=== PATIENT | male | born 1955 | race Caucasian/White ===

== ENCOUNTER 2017-11-16 20:22 | Emergency (ER) | payer OTHER ==
[~2017-11-16] VITALS: Ht 188 cm; Wt 114.8 kg
[~2017-11-16 20:22] MED LIST: CRESTOR10 MG PO; METFORMIN HCL1000 MG PO
[2017-11-16 21:34] LABS: HEMATOCRIT 46.5 % (38.0-50.0); HEMOGLOBIN 16.9 G/DL (12.5-16.6); MCH 31.7 PG (29.0-34.0); MCHC 36.3 G/DL (30.0-36.0); MCV 87.2 FL (86-99); PLATELET COUNT 222 K/uL (156-360); RBC DIS.WIDTH-CV 12.4 % (11.8-14.6); RBC DIS.WIDTH-SD 39.5 % (39-53); RED BLOOD COUNT 5.33 M/uL (4.00-5.50); WHITE BLOOD COUNT 12.2 K/uL (4.1-10.2)
[2017-11-16 21:43] LABS: ALBUMIN 4.6 g/dL (3.2-4.8); CHLORIDE 105 mEq/L (99-109); POTASSIUM 3.7 mEq/L (3.7-5.4); SODIUM 139 mEq/L (136-147)
[2017-11-16 21:45] LABS: GLUCOSE 176 mg/dL (70-99)
[2017-11-16 21:47] LABS: TOTAL BILIRUBIN 0.9 mg/dL (0.0-1.0)
[2017-11-16 21:49] LABS: ALKALINE PHOSPHATASE 109 IU/L (3-129); CREATININE 1.1 mg/dL (0.6-1.3); GFR ESTIMATE (CALCULATED) > 59 mL/min/ (58.99-99999)
[2017-11-16 21:50] LABS: UREA NITROGEN (BUN) 13 mg/dL (9-23)
[2017-11-16 21:51] LABS: AST (GOT) 24 IU/L (2-34)
[2017-11-16 21:52] LABS: ALT (GPT) 35 IU/L (3-49)
[2017-11-16 22:39] LABS: APPEARANCE CLEAR ((CLEAR)); BILIRUBIN NEGATIVE; BLOOD NEGATIVE; COLOR YELLOW ((YELLOW)); GLUCOSE (STRIP) NEGATIVE; KETONES NEGATIVE; LEUKOCYTES NEGATIVE; NITRITE NEGATIVE; PROTEIN (STRIP) 30; SPECIFIC GRAVITY 1.023 (1.000-1.030); UCUL ADDED? NO; UROBILINOGEN 0.2 MG/DL (0.2-1.0)
[2017-11-16 22:50] LABS: INTER. NORMALIZED RATIO 1.1
[2017-11-16 22:53] LABS: PTT 31.8 SEC (25-37)
[2017-11-16 23:02] LABS: LIPASE 14 U/L (1.0-51.0)
[2017-11-16] MEDS ORDERED: ZOFRAN4 MG PO (23:44)
[2017-11-16] MEDS ORDERED: FLAGYL500 MG PO (23:44)
[2017-11-16] MEDS ORDERED: BENTYL20 MG PO (23:44)
[2017-11-16] MEDS ORDERED: CIPRO500 MG PO (23:44)
[2017-11-16 23:56] VITALS: BP 143/80
== END 2017-11-16 23:59 | disposition home or self-care (01) ==
LOC: EME 20:22
DX: K52.9 Noninfective gastroenteritis and colitis, unspecified (principal); K80.20 Calculus of gallbladder without cholecystitis without obstruction; E78.5 Hyperlipidemia, unspecified; E11.9 Type 2 diabetes mellitus without complications; Z79.84 Long term (current) use of oral hypoglycemic drugs; Z87.891 Personal history of nicotine dependence
CPT/HCPCS: 74177; 80053; 81003; 83690; 85027; 85610; 85730; 99281; 99285; J2270; J2405; J7030